=== PATIENT | female | born 1995 | race Two or more races ===

== ENCOUNTER 2017-11-30 06:46 | Inpatient (IN) | payer OTHER ==
[~2017-11-30] VITALS: Ht 157.5 cm; Wt 93.9 kg
[2017-11-30] MEDS ORDERED: PRENATAL TABLE1 EAC4 PO (08:53)
== END 2017-12-02 08:56 | DRG 775 ==
LOC: LDR 06:46 → OB/GYN 06:46 → LDR 07:18 → OB/GYN 14:32
PROC: 10E0XZZ Delivery of Products of Conception, External Approach (ICD-10-PCS; principal; 2017-11-30)
PROC: 0KQM0ZZ Repair Perineum Muscle, Open Approach (ICD-10-PCS; 2017-11-30)
PROC: 4A1HXCZ Monitoring of Products of Conception, Cardiac Rate, External Approach (ICD-10-PCS; 2017-11-30)
PROC: 4A033R1 Measurement of Arterial Saturation, Peripheral, Percutaneous Approach (ICD-10-PCS; 2017-11-30)
DX: O70.1 Second degree perineal laceration during delivery (principal); Z37.0 Single live birth; Z3A.39 39 weeks gestation of pregnancy